=== PATIENT | male | born 1955 | race Caucasian/White ===

== ENCOUNTER 2016-11-13 09:12 | Day surgery (SDC) | payer MEDICARE ==
[2015-12-24 13:35] VITALS: BMI 29.9
[2016-11-13] MEDS ORDERED: Lactated Ringer's 500 ML IV ONE (09:46)
[2016-11-13 10:15] VITALS: TEMP 96.9
[2016-11-13] MEDS ORDERED: Propofol 10 mg/ml Inj (20 ML) ONE (10:30)
[2016-11-13 11:19] VITALS: BP 110/68; PULSE 59; RESP 17; O2SAT 98
== END 2016-11-13 11:23 | disposition home or self-care (01) ==
LOC: H.ENDO 09:12
PROVIDERS: ATTEND Internal Medicine Gastroenterology
DX: Z12.11 Encounter for screening for malignant neoplasm of colon (principal); K64.8 Other hemorrhoids; M19.90 Unspecified osteoarthritis, unspecified site
CPT/HCPCS: 45378; J2001; J2704; J7120